=== PATIENT | female | born 1970 | race Caucasian/White ===

== ENCOUNTER → 2018-11-18 | Outpatient (CLI) | payer OTHER | LOC: MAMMO 09:20 | PROVIDERS: ATTEND Family Medicine | DX: Z12.31 Encounter for screening mammogram for malignant neoplasm of breast (principal) | CPT/HCPCS: 77067 ==

== ENCOUNTER → 2020-09-11 | Outpatient (CLI) | payer OTHER ==
[~2020-09-11] MED LIST: GADOBENATE DIMEGLUMINE 1 ML IV ONE; IOPAMIDOL 300 MG/ML 15ML VIAL IT ONE; LIDOCAINE HCL 1% LOCAL INJ 20 ML VIAL ONE
== END ==
LOC: DX 09:02
PROVIDERS: ATTEND Orthopaedic Surgery
DX: M54.16 Radiculopathy, lumbar region (principal); M70.62 Trochanteric bursitis, left hip
CPT/HCPCS: 20610; 27093; 72148; 73722; A9577; J2001; Q9967